=== PATIENT | female | born 1935 | race Caucasian/White ===

== ENCOUNTER → 2017-03-13 | Outpatient (CLI) | payer MEDICARE, BC ==
--- NOTE | ~2017-03-13 | ENPV ---
Vascular Lower Arterial Plethysmography Procedure Demographics Patient Name AMINA FERNANDES Date of Study 03/13/2017 Patient Number [id number] Gender Female Date of 1935 Age 81 Visit Number [id number] Height Accession Number [id number] Weight Room Number BSA BMI Referring [facility] Monty Gan MD Physician Physician Physician Ordering Physician [facility] Monty Miller MD Naphtha Washing System Operator Naun Reed BS, RT Conclusions Summary Ankle brachial index on the right is 1.08 no significant arterial disease at rest. Ankle brachial index on the left is 1.05 no significant arterial disease at rest. Biphasic waveforms in bilateral lower extremities. Procedure Type of Study: Extremities Arteries:Lower Arterial Plethysmography, Ankle/Brachial Indicies. Indications for Study:Pain in Limb. Patient Status:Routine. Study Location:Vascular Lab. Technical Quality:Adequate visualization. Velocities are measured in cm/s ; Diameters are measured in cm Pressures + ++--------+-----+----+--------+-----+ ! !!Right ! !Left! ! ! + ++--------+-----+----+--------+-----+ !Location !!Pressure!Ratio! !Pressure!Ratio! + ++--------+-----+----+--------+-----+ !Ankle PT !!177 !1.08 ! !130 !0.79 ! + ++--------+-----+----+--------+-----+ !DP !!161 !0.98 ! !172 !1.05 ! + ++--------+-----+----+--------+-----+ !Great Toe !!88 !0.54 ! !94 !0.57 ! + ++--------+-----+----+--------+-----+ - Brachial Pressure:Right: 164.Left:150. - JOAN:Right: 1.08.Left: 1.05. Plethysmographic Digit Evaluation +---------++--------+-----+ ++--------+-----+ + ! !!Right ! !Left !! ! ! ! +---------++--------+-----+ ++--------+-----+ + !Location !!Pressure!Ratio!PPG Wave Form !!Pressure!Ratio!PPG Wave Form ! +---------++--------+-----+ ++--------+-----+ + !Great Toe!!88 !0.54 ! !!94 !0.57 ! ! +---------++--------+-----+ ++--------+-----+ + Signature dtt: EMMA ESPANA: 03/13/17 0955 Physician Self Edit
== END | disposition disaster alternative care site (69) ==
LOC: GCAR 03-10 10:00
DX: M79.605 Pain in left leg (principal); M79.604 Pain in right leg; M54.9 Dorsalgia, unspecified